=== PATIENT | female | born 2005 | race Hispanic/Latino ===

== ENCOUNTER 2024-04-08 20:54 | Emergency (ER) | payer SELFPAY ==
[~2024-04-08] VITALS: Ht 152.4 cm; Wt 59.0 kg
[2024-04-08 21:00] VITALS: BP 136/71; PULSE 66; RESP 20
[2024-04-08 21:23] LABS: BASOPHILS # (AUTO) 0.01 K/uL (0.00-0.20); BASOPHILS % (AUTO) 0.2 % (0.0-5.0); EOSINOPHILS # (AUTO) 0.06 K/uL (0.00-0.70); HEMATOCRIT 38.8 % (36-48); IMMATURE GRANULOCYTE ABSOLUTE 0.01 K/uL (0-1); LYMPHOCYTES % (AUTO) 33.9 % (21.0-51.0); MEAN CORPUSCULAR HEMOGLOBIN 29.2 pg (27.0-33.0); MEAN CORPUSCULAR HGB CONC 33.2 g/dL (32.0-36.0); MEAN CORPUSCULAR VOLUME 87.8 fL (80-100); MONOCYTES # (AUTO) 0.4 K/uL (0.1-1.0); MONOCYTES % (AUTO) 6.8 % (3.0-13.0); NEUTROPHILS # (AUTO) 3.3 K/uL (1.8-7.7); NEUTROPHILS % (AUTO) 57.9 % (40.0-77.0); PLATELET COUNT (AUTO) 238 K/uL (130-400); RED BLOOD CELL COUNT(AUTO) 4.42 MIL/uL (4.00-5.50); WHITE BLOOD COUNT (AUTO) 5.8 K/uL (4.8-10.8)
[2024-04-08 21:32] LABS: CREATININE 0.6 mg/dL (0.5-1.0); POTASSIUM 3.2 mmol/L (3.5-5.1)
[2024-04-08 21:43] LABS: B-TYPE NATRIURETIC PEPTIDE 11 pg/mL (0-100)
== END 2024-04-08 23:30 | disposition home or self-care (01) ==
LOC: EDH 20:54
DX: K29.70 Gastritis, unspecified, without bleeding (principal); R07.89 Other chest pain; R20.0 Anesthesia of skin
CPT/HCPCS: 36415; 71045; 80048; 82550; 83880; 84484; 85025; 93005

== ENCOUNTER 2024-12-21 11:36 | Emergency (ER) | payer BC, SELFPAY ==
[~2024-12-21] VITALS: Ht 152.4 cm; Wt 58.1 kg
[2024-12-21 11:46] VITALS: BP 110/76; PULSE 78; RESP 16; TEMP 98.1
[2024-12-21] MEDS ORDERED: PERM60CR4 TP (11:47)
--- NOTE | 2024-12-21 11:47 | ERN ---
General Stated Complaint: RASH Time Seen by MD: 11:37 Source: patient History of Present Illness Initial Comments MALE COMING IN TO BE EVALUATED FOR RASH. PATIENT STATES THAT THE RASH HAS BEEN ONGOING FOR A COUPLE OF DAYS. SHE STATES THAT THE RASH IS PRESENT IN HER HANDS AND HER INGUINAL AREA. Allergies: Coded Allergies: No Known Allergies (Unverified Allergy, Unknown, 04/08/24) Past Medical History Past Medical History: Other Medical History Other: HX OF GASTRITIS Past Surgical History: None Family History Family History: Negative Social History Social History: Negative ROS Dictation CONSTITUTIONAL: NO CHILLS, NO FEVER, NO WEAKNESS, NO DIAPHORESIS, NO MALAISE. HEAD/FACE: NO SIGNS OF TRAUMA. EENT: NO EYE PAIN, NO BLURRED VISION, NO TEARING, NO DOUBLE VISION, NO EAR PAIN, NO EAR DISCHARGE, NO NOSE PAIN, NO NASAL CONGESTION, NO THROAT PAIN, NO THROAT SWELLING, NO MOUTH PAIN. RESPIRATORY: NO COUGH, NO ORTHOPNEA, NO SOB, NO STRIDOR, NO WHEEZING. CARDIOVASCULAR: NO CHEST PAIN, NO EDEMA, NO PALPITATIONS, NO SYNCOPE. GASTROINTESTINAL/ABDOMINAL: NO ABDOMINAL PAIN, NO CONSTIPATION, NO DIARRHEA, NO NAUSEA, NO VOMITING. GENITOURINARY: NO ABNORMAL DISCHARGE, NO DYSURIA, NO FREQUENT URINATION, NO HEMATURIA. NO COMPLAINTS OF PAIN IN THE GENITALS. MUSCULOSKELETAL: NO BACK PAIN, NO GOUT, NO JOINT PAIN, NO JOINT SWELLING, NO MUSCLE PAIN, NO MUSCLE STIFFNESS, NO NECK PAIN. INTEGUMENTARY: NO CHANGE IN COLOR, NO CHANGE IN HAIR/NAILS, NO DRYNESS, NO LESION, NO LUMPS, RASH. NEUROLOGICAL/PSYCH: NO ANXIETY, NOT DEPRESSED, NO EMOTIONAL PROBLEM, NO HEADACHE, NO NUMBNESS, NO PRE-EXISTING DEFICIT, NO HISTORY OF SEIZURES, NO TREMORS, NO WEAKNESS. HEMATOLOGIC/LYMPHATIC: NOT ANEMIC, NO HISTORY OF BLOOD CLOTS, NO APPARENT BLEEDING, NO BRUISING, GLANDS NOT SWOLLEN. ALL SYSTEMS NEGATIVE, EXCEPT NOTED. Physical Exam Physical Exam Dictation VITAL SIGNS: REVIEWED. GENERAL APPEARANCE: ALERT, ORIENTED X3, NO ACUTE DISTRESS, OBESE. HEAD AND FACE: NON-TRAUMATIC. EYES: PERRL, PINK CONJUNCTIVAS, EYELID NO TRAUMA, ANTERIOR CHAMBER CLEAR. EARS: PINNAS INTACT AND NO SIGNS OF TRAUMA OR ERYTHEMA. EAR CANALS CLEAR AND NO DISCHARGE. TMS NO ERYTHEMA. NOSE: NO DISCHARGE, NO BLEEDING. OROPHARYNX: MOUTH NORMAL, TEETH NO CARIES, TONGUE PINK. PHARYNX CLEAR, NO ERYTHEMA. TONSILS NO EXUDATES, NO ABSCESSES NOTED. MUCOUS MEMBRANE MOIST. NECK: SUPPLE, NON-TENDER, NO THYROMEGALY, NO MASSES, NO JVD, NO BRUITS. BREAST: DEFERRED. CHEST: NO TENDERNESS, NO CREPITUS, NO PARADOXICAL MOVEMENT, NO RETRACTIONS. LUNGS: CLEAR, WELL-VENTILATED, SYMMETRIC, NO RALES, NO WHEEZING, NO RHONCHI, NO STRIDOR, GOOD BREATH SOUNDS BILATERALLY. HEART: REGULAR RATE, REGULAR RHYTHM, NO MURMUR, NO GALLOPS. VASCULAR: NO PERIPHERAL EDEMA. ABDOMEN: SOFT, POSITIVE BOWEL SOUNDS, NONDISTENDED, NO GUARDING, NONTENDER, NO REBOUND, NO MASSES NO HEPATOMEGALY, NO SPLENOMEGALY, NO POLANCO'S SIGN, NO HERNIAS. RECTAL: DEFERRED. GENITAL: DEFERRED. NEUROLOGICAL: NORMAL SPEECH, GROSS MOTOR FUNCTION INTACT, GROSS SENSORY FUNCTION INTACT. MUSCULOSKELETAL: NECK NONTENDER, FULL RANGE OF MOTION, BACK NONTENDER, FULL RANGE OF MOTION. EXTREMITIES: NONTENDER, FULL RANGE OF MOTION. SKIN: COLOR PINK, DRY, NO TURGOR, RASH IN IN TERMS DIGIT AREAS WELL INGUINAL AREAS LYMPHATICS: DEFERRED. Results Laboratory and Microbiology Labs Reviewed?: Yes MDM MDM: DIFFERENTIAL DIAGNOSIS: SCABIES, ALLERGIC REACTION, RASH, RATIONALE: TESTS CONSIDERED AND ORDERED SECONDARY TO SHARED DECISION MAKING INCLUDE: PREVIOUS OUTSIDE RECORDS REVIEWED: OLD ER VISITS. RISK OF COMPLICATION AND/OR MORBIDITY OR MORTALITY OF PATIENT MANAGEMENT: NONE MEDICATIONS-PER MEDICATION RECONCILIATION PATIENT IS A 19-YEAR-OLD FEMALE COMING IN TO BE EVALUATED FOR RASHES SHE PRESENTED WITH A COUPLE OF DAYS AGO ON PHYSICAL EXAM RASH PRESENTS IN THE AREAS SCABIES WOULD AND IT DOES LOOK LIKE SCABIES. PATIENT WILL BE TREATED WITH TOPICAL MEDICATION FOR SCABIES TREATMENT. DX & DISP Disposition: Discharge Departure Impression: Primary Impression: Scabies Condition: Stable Scripts Permethrin (Permethrin) 5 % Cream..g. 1 APPL TP ONCE for 1 Day, #60 GM 0 Refills massage into skin from head to soles of feet one time, leave on for 8-14 hours then remove by thorough washing Prov: NANO ABEL MD 12/21/24 Additional Instructions: FOLLOW-UP WITH PRIMARY CARE PROVIDER IN 1 TO 2 DAYS. TAKE MEDICATIONS DIRECTED HERE IN THE EMERGENCY ROOM. OKAY TO CONTINUE HOME MEDICATIONS UNLESS OTHERWISE DISCUSSED DURING YOUR VISIT IN THE EMERGENCY ROOM TODAY. RETURN TO YOUR NEAREST EMERGENCY ROOM IF SYMPTOMS WORSEN OR IF THERE IS NO IMPROVEMENT. CALL 911 IF YOU NEED IMMEDIATE ASSISTANCE. TAKE TYLENOL CMDL-BUM-WECDAPL NEEDED AND IF NO CONTRAINDICATIONS ARE PRESENT. INCREASE ORAL HYDRATION. A WOUND CULTURE OR URINE CULTURE WAS ORDERED HERE IN THE EMERGENCY ROOM DEPARTMENT PLEASE FOLLOW-UP WITH PRIMARY CARE PROVIDER AND ADVISE THEM TO GET REPEAT PORTS FROM OUR FACILITY. IF YOU HAD ANY FOREIGN WRAP/SPLINTS THAT WERE APPLIED HERE, PLEASE DO NOT REMOVE THEM UNTIL YOU SEE YOUR PRIMARY CARE OR SPECIALTY. REFERRALS: Referrals: SELF,REFERRAL (PCP) CECIL ELAM MD Time of Disposition: 11:46 NANO ABEL MD December 21, 2024 11:47
== END 2024-12-21 12:06 | disposition home or self-care (01) ==
LOC: EDH 11:36
DX: B86 Scabies (principal)
CPT/HCPCS: 99282

== ENCOUNTER 2024-12-21 22:38 | Emergency (ER) | payer BC ==
[~2024-12-21] VITALS: Ht 152.4 cm; Wt 58.1 kg
[~2024-12-21 22:38] MED LIST: PERM60CR4 TP
--- NOTE | 2024-12-21 23:09 | ERN ---
General Chief Complaint: Skin Rash/Abscess Stated Complaint: RASH, DIAGNOSED WITH SCABBIES Time Seen by MD: 22:43 Source: patient History of Present Illness Initial Comments Healthy 19-year-old female comes in with a rash spreading over her entire body. She is teary-eyed and a little concerned. She was seen this morning at [facility] Emergency room because of bumps on her left proximal index finger and right proximal middle finger. She was diagnosed with scabies and given permethrin cream. She applied the cream to her entire body and has started to break out in a rash that is in her groin area abdomen and back. Patient reports no new pets no new allergies no new detergents no new medications. She also does not have any new upper respiratory tract symptoms. No fevers or chills. Timing/Duration: 4-6 hours Allergies: Coded Allergies: No Known Allergies (Unverified Allergy, Unknown, 04/08/24) Home Meds Active Scripts Permethrin (Permethrin) 5 % Cream..g., 1 APPL TP ONCE for 1 Day, #60 GM 0 Refills massage into skin from head to soles of feet one time, leave on for 8-14 hours then remove by thorough washing Prov:NANO ABEL MD 12/21/24 Past Medical History Past Medical History: Other Medical History Other: HX OF GASTRITIS, SCABBIES Past Surgical History: None Family History Family History: Negative Social History Social History: Negative Constitutional: (-) chills, (-) diaphoresis, (-) fever, (-) malaise, (-) weakness, (-) other documentation EENTM: (-) eye pain, (-) blurred vision, (-) tearing, (-) double vision, (-) ear pain, (-) ear discharge, (-) nose pain, (-) nose congestion, (-) throat pain, (-) Throat swelling, (-) mouth pain, (-) tooth pain, (-) mouth swelling, (-) other documentation Respiratory: (-) cough, (-) orthopnea, (-) short of breath, (-) stridor, (-) wheezing, (-) other documentation Cardiovascular: (-) chest pain, (-) edema, (-) palpitations, (-) syncope, (-) dyspnea on exertion, (-) other documentation Gastrointestinal/Abdominal: (-) nausea, (-) vomiting, (-) diarrhea, (-) abdominal pain, (-) abdominal distention, (-) constipation, (-) rectal bleeding, (-) dark stool/melena, (-) other documentation Genitourinary: (-) vaginal discharge, (-) vaginal bleeding, (-) dysuria, (-) frequency, (-) hematuria, (-) pain, (-) other documentation Musculoskeletal: (-) Neck pain, (-) back pain, (-) Flank Pain, (-) joint pain, (-) joint swelling, (-) muscle pain, (-) muscle stiffness, (-) gout, (-) other documentation Skin: (-) laceration, (-) contusion, (-) abrasion, (-) abscess, (-) rash, (-) change in color, (-) change in hair, (-) change in nails, (-) diaphoresis, (-) dryness, (-) other documentation Neuro: (-) altered mental status, (-) headache, (-) syncope, (-) paralysis, (-) numbness, (-) seizure, (-) pre-existing deficit, (-) tremors, (-) weakness, (-) dizziness, (-) slurred speech, (-) vertigo, (-) other documentation Physical Exam General Appearance: (+) moderate distress Orientation: (+) alert, (+) oriented x 3 Eye: bilateral eye normal inspection, bilateral eye PERRL, bilateral eye EOMI Ear, Nose, Throat: (+) hearing grossly normal, (+) normal ENT inspection, (+) moist mucous membraine Neck: (+) normal inspection, (+) supple, (+) full range of motion, (+) no JVD Respiratory: (+) chest non-tender, (+) lungs clear, (+) well ventilated Heart: (+) regular, (+) no gallop Vascular: (+) no edema, (+) normal peripheral pulse Gastrointestinal: (+) soft, (+) no organomegaly, (+) bowel sound present Skin: (+) rash Skin Comment Patient has the aforementioned bumps on her hand and in addition a spreading rash that looks like hives on her feet hands face the worse is on her torso. The torso rash is also raised and itching. MDM My suspicion is the patient is having an allergic reaction to the permethrin cream. The timing is appropriate and the rash resembles the type of rash that permethrin cream causes. We are going to give her some IM prednisone and Benadryl. I recommend she see a correction officer supervisor as the lesions on her fingers do not look like classic scabies. They maybe scabies but they do not have the classic scabies tunneling color. Her lesions are white and circular well from each other. A scabies rash is often red with tunneling. Patient does not report wheezing or shortness of breath with the permethrin rash. We will observe her for another half an hour and discharge her home with follow-up with a correction officer supervisor. Patient is stable breathing is fine I will discharge her home. She should stop ped using the permethrin and follow-up with a correction officer supervisor. ED Course Orders Procedure Category Date Status Time Dexamethasone 4mg/Ml PHA 12/22/24 Complete 1ml Vial (Dexametha 00:00 Diphenhydramine Hcl PHA 12/22/24 Complete (Benadryl Inj) 00:00 Current Medications Medications (Trade) Dose Ordered Sig/Olrna Route PRN Reason Start Time Stop Time Status Last Admin Dose Admin Dexamethasone Sodium Phosphate (dexaMETHasone 4MG/ML 1ML VIAL) 6 mg ONCE ONCE IM 12/22/24 00:00 12/22/24 00:01 DC 12/21/24 23:38 Diphenhydramine HCl (BENAdryl INJ) 25 mg ONCE ONCE IM 12/22/24 00:00 12/22/24 00:01 DC 12/21/24 23:38 Vital Signs Date Time Temp Pulse Resp B/P (MAP) Pulse Ox O2 Delivery O2 Flow Rate FiO2 12/21/24 23:11 98.1 65 16 118/78 98 Room Air* 0 21 12/21/24 22:40 98.1 68 20 118/78 100 Room Air DX & DISP Disposition: Discharge Departure Impression: Primary Impression: Allergy Condition: Stable Additional Instructions: Please return if you have difficulty breathing or if the rash does not improve over the next week. Referrals: BARON LUCERO MD (PCP) JAMES MARTÍNEZ MD December 21, 2024 23:09
[2024-12-21] MEDS: DiphenhydrAMINE HCL 50 MG/ML VIAL IM ONE (23:38)
[2024-12-21] MEDS: dexaMETHasone SOD PHOSPHATE 4 MG/ML 1ML VIAL IM ONE (23:38)
--- NOTE | 2024-12-22 00:01 | NUR ---
TRANSFERED CARE TO [facility] AT THIS TIME
[2024-12-22 00:43] VITALS: BP 122/80; PULSE 62; RESP 16; TEMP 98; O2SAT 98
--- NOTE | 2024-12-22 01:05 | NUR ---
WENT INTO ROOM TO DISCHARGE PT. PT IS NOT IN ROOM AT THIS TIME. ED RN WENT TO LOBBY TO SEE IF PT WAS THERE AND NO ANSWER.
== END 2024-12-22 01:07 | disposition left against medical advice (07) ==
LOC: EDH 22:38
DX: R21 Rash and other nonspecific skin eruption (principal); T49.0X5A Adverse effect of local antifungal, anti-infective and anti-inflammatory drugs, initial encounter; Y92.89 Other specified places as the place of occurrence of the external cause
CPT/HCPCS: 99284; 99282; 96372 ×2; J1100; J1200